=== PATIENT | female | born 1970 | race Caucasian/White ===

== ENCOUNTER 2016-12-18 15:50 | Inpatient (IN) | payer OTHER ==
[~2016-12-18] VITALS: Ht 165.1 cm; Wt 87.4 kg
[~2016-12-18 15:50] MED LIST: EXEN10PE SQ; METF10002 PO; SIMV40TA5 PO
[2016-12-18 16:21] VITALS: BP 135/84; PULSE 76; RESP 16; O2SAT 97
[2016-12-18] MEDS ORDERED: 0.9% Sodium Chloride 1,000 ML IV ONE ×2 (16:26→17:40)
[2016-12-18] MEDS ORDERED: Ketorolac 15 mg/mL Inj IVPUSH ONE (16:30)
--- NOTE | 2016-12-18 16:30 | ED.REPORT ---
HPI-Abd Pain F 40 and Over Date of Service Dec 18, 2016 ED Provider: Todd Keith DO The patient is a 45 year old female with history of diabetes mellitus, and pancreatitis thought to be due to medication use, who was sent to the emergency department from urgent care for abdominal pain that has gradually worsened over the last 5 days. Her pain is located to her upper abdomen. She has also noticed elevated sugars and chills. Her symptoms are worse after eating or drinking. She has only been able to tolerate fluids today but still feels she is not drinking enough. She is unable to tolerate solids due to pain. She believes her symptoms are similar to when she had pancreatitis. She denies nausea, vomiting, diarrhea, fever, dysuria, hematuria, urgency/frequency changes, cough, shortness of breath or chest pain. She has no known drug allergies. Nursing Notes Stated Complaint: ABDOMINAL PAIN Chief Complaint: Female Abdominal Pain Nursing Notes Reviewed: Yes Allergies: Coded Allergies: TAPE (Verified Allergy, Severe, severe rash, 12/18/16) latex (Verified Allergy, Severe, severe rash, 12/18/16) exenatide (Verified Adverse Reaction, Severe, pancreatitis, 12/18/16) simvastatin (Verified Adverse Reaction, Severe, pancreatitis, 12/18/16) Scheduled Metformin (Glucophage) 1,000 Mg Tablet 1,000 MG PO BID General Time Seen by MD: 16:07 Chief Complaint Abdominal pain Hx Obtained From: Patient Arrived By: Walk-in Sudden in Onset?: Yes Onset Occurred: 5 days ago Symptom Duration: Since onset Progression since Onset: Constant, Gradually worsening Location: : Abdomen upper Quality: Painful Radiation: : Does not radiate Severity: Current: Moderate Severity: Maximum: Moderate Associated with: Reports: Chills Pertinent Negative: Pt denies other symptoms Recent Healthcare: No recent hospitalization, Recent doctor visit Similar Sx Previous: Yes Past Medical History Past Medical History Pancreatitis Reports: Asthma, Diabetes mellitus, Hyperlipidemia Past Surgical History L knee repair Reports: Appendectomy, Family History Noncontributory Smoking History Former Smoker Social History Alcohol Use: "Social" Drug Use: Denies drug use Other Social History: Local resident Ambulatory Status Independent Review of Systems +elevated sugars, decreased PO intake Constitutional: Reports: Chills, Denies: Fever Respiratory: Denies: Non-productive cough, Shortness of breath Cardiovascular: Denies: Chest pain GI: Reports: Abdominal pain, Anorexia, Denies: Diarrhea, Nausea, Vomiting Female: Denies: Dysuria, Hematuria, Urinary frequency, Urinary urgency, Urination decreased, Urination increased Complete sys rev & neg: except as marked. Physical Exam Vital Signs Vital Signs (First) Date Time Temp Pulse Resp B/P Pulse Ox O2 Delivery O2 Flow Rate FiO2 12/18/16 16:21 36.8 76 16 135/84 97 Room Air Initial VS: Reviewed Head / Eyes: Atraumatic, Normocephalic, PERRL ENT: Mucous membranes moist, Conjunctiva normal, No scleral icterus Neck: Supple, Non-tender, Full range of motion Lymphatic: No lymphadenopathy Extremities: Vascular intact, Neuro intact, No swelling, No tenderness Skin: Warm, Dry, No cyanosis Neurologic: Alert, Oriented, Nonfocal Psychiatric: Mood/affect normal, Behavior normal, Normal thought content General/Constitutional: Awake, Alert Respiratory / Chest: Atraumatic, Breath sounds NL, Breath sounds = bilat, No respiratory distress, No rales, No rhonchi, No wheezing, No stridor Cardiovascular: Heart rate NL, Regular rhythm, Heart sounds NL, No gallop, No murmurs, No rubs, Peripheral circulation NL Abdomen: Soft, No guarding, No rebound, BS normoactive, No distention, No hernia, No palpable mass, No pulsatile mass Tenderness/Guarding/Rebound: Positive: Tender LUQ... (Mild) Back: Inspection NL, Non-tender, No CVA tenderness Interpretation & Diagnostics Lab Results Interpretation Result Diagram: 12/18/16 1639 12/18/16 1639 Test 12/18/16 16:39 White Blood Count 9.6th/mm3 (3.8-10.1) Red Blood Count 4.70mil/mm3 (3.90-5.20) Hemoglobin 13.5g/dL (12.0-15.6) Hematocrit 38.5% (35.0-46.0) Mean Corpuscular Volume 81.9fL (81-100) Mean Corpuscular Hemoglobin 28.7pg (27.0-35.0) Mean Corpuscular Hemoglobin Concent 35.1% (32.0-37.0) Red Cell Distribution Width 12.3% (12.3-15.4) Platelet Count 310bil/L (150-400) Neutrophils (%) (Auto) 68.0% (40-74) Lymphocytes (%) (Auto) 23.9% (14-46) Monocytes (%) (Auto) 5.5% (4-12) Eosinophils (%) (Auto) 1.7% (0-5) Basophils (%) (Auto) 0.4% (0-3) Sodium Level 132mEq/L (134-144) Potassium Level 3.8mEq/L (3.5-5.2) Chloride Level 93mEq/L (97-108) Carbon Dioxide Level 24mmol/L (18-29) Blood Urea Nitrogen 8mg/dL (6-24) Creatinine 0.44mg/dL (0.57-1.00) Estimat Glomerular Filtration Rate 221mL/min (>59) Glucose Level 277mg/dL (60-99) Calcium Level 9.6mg/dL (8.5-10.1) Magnesium Level 1.9mg/dL (1.6-2.6) Total Bilirubin 0.3mg/dL (0.0-1.2) Aspartate Amino Transf (AST/SGOT) 11U/L (0-50) Alanine Aminotransferase (ALT/SGPT) 17U/L (0-32) Alkaline Phosphatase 86U/L (25-150) Total Protein 7.8g/dL (6.4-8.4) Albumin 4.3g/dL (3.4-5.0) Lipase 820U/L (13-60) Re-Eval/Medical Decision Med Decision/Clinical Course Acute pancreatitis will admit. Source of Hx: Old records Re-Evaluation/Progress : Time of Eval: 17:33 Re-Evaluation/Progress Note: Rechecked the patient. Discussed diagnosis and plan for admission. All questions were addressed. Consultation : Referral / Consult Name: Mikey Salazar MD Consulted With: Hospitalist Requested Call at: 17:34 Call Returned at: 18:02 Crane Mechanic: Will see patient, Agrees with eval, Agrees with plan, Accepts admit Counseled Regarding: Diagnosis, Lab results, Need for admission Discharge & Departure Primary Impression: Pancreatitis Chronicity: acute Pancreatitis type: unspecified pancreatitis type Qualified Code: K85.9 - Acute pancreatitis, unspecified Disposition: ADMITTED TO HOSPITAL Discharge Condition All VS Reviewed: Yes Condition: Stable Referrals: La Minor PA-C (PCP) Jim Attestation Portions of this note were transcribed by Talya Hull. I, Dr. Keith personally performed the history, physical exam and medical decision-making; I reviewed and confirmed the accuracy of the information in the transcribed note. Signed by: Jim Chiu, 12/18/2016 at 1803. copies to: La Minor PA-C, Timothy S DO Dec 18, 2016 16:29 Talya Hull Dec 18, 2016 16:37
[2016-12-18] MEDS: Ondansetron 2 mg/mL 2 mL Inj IVPUSH PRN ×3 (16:50→23:03)
[2016-12-18 16:51] LABS: BASOPHILS % (AUTO) 0.4 % (0-3); EOSINOPHILS % (AUTO) 1.7 % (0-5); MONOCYTES % (AUTO) 5.5 % (4-12); Mean Corpuscular Hemoglobin 28.7 pg (27.0-35.0); Mean Corpuscular Volume 81.9 fL (81-100); Platelet Count 310 bil/L (150-400)
[2016-12-18 17:11] LABS: Magnesium 1.9 mg/dL (1.6-2.6)
[2016-12-18] MEDS ORDERED: 0.9% Sodium Chloride 1,000 ML IV SCH (17:40)
[2016-12-18] MEDS ORDERED: METF1000 PO (18:01)
[2016-12-18 18:15] VITALS: BP 141/78; PULSE 62; RESP 16; O2SAT 100
[2016-12-18] MEDS ORDERED: Glucose 40% Oral Gel 15 Gm Tube PO PRN ×2 (19:25→20:00)
[2016-12-18] MEDS: 0.9% Sodium Chloride 1,000 ML IV SCH (19:27)
[2016-12-18 19:48] VITALS: BP 141/78; PULSE 62; RESP 16; O2SAT 100
[2016-12-18 19:56] VITALS: BP 131/79; PULSE 60; RESP 18; O2SAT 99
--- NOTE | 2016-12-18 20:10 | PCM.HPMED ---
Subjective Date of Service Dec 18, 2016 Primary Provider: Admitting Physician: Mikey Salazar MD Primary Care Physician: Nopmeggan Attending Physician: Mikey Salazar MD Chief Complaint: Abdominal pain, nausea, vomiting History of Present Illness: The patient is a 45 year old female with history of non insulin dependent diabetes mellitus type II, obesity, pancreatitis x 2 for unknown cause ( presumably due medication) . She was seen today and urgent care center due to ongoing abdominal pain and nausea for 4-5 days and was referred to the ER for further evaluation. Patient denied any vomiting or diarrhea. Denies any alcohol intake . She stated any oral intake worsen her abdominal pain including drinking water . She denies chest pain, shortness of breath, fever, chills. Anemia workup shows lipase 800, blood sugar 277. Review of Systems: Comprehensive review is negative for what is described above in HPI Allergies Coded Allergies: TAPE (Verified Allergy, Severe, severe rash, 12/18/16) latex (Verified Allergy, Severe, severe rash, 12/18/16) exenatide (Verified Adverse Reaction, Severe, pancreatitis, 12/18/16) simvastatin (Verified Adverse Reaction, Severe, pancreatitis, 12/18/16) Home Medications Metformin (Glucophage) 1,000 Mg Tablet 1,000 MG PO BID PMH Metformin (Glucophage) 1,000 Mg Tablet 1,000 MG PO BID Surgical History L knee repair Reports: Appendectomy, Family History Family history reviewed and is noncontributory to the present illness Social History Hx Alcohol Use: Yes (occassionally) Hx Substance Use: No Smoking Status: Never Smoker Living Arrangement: with Family Exam Vital Signs Vital Sign - Last Date Time Temp Pulse Resp B/P Pulse Ox O2 Delivery O2 Flow Rate FiO2 12/18/16 19:56 36.4 60 18 131/79 99 Room Air Exam General: Alert female comfortably in no distress. HEENT: Normocephalic,. Sclerae is anicteric, CHESTER Mouth: Moist oral mucosa, no thrush Neck: No cervical lymphadenopathy, trachea is midline Chest: Normal respiratory effort, no chest tenderness. Heart: S1-S2 regular with no murmur Lungs: Clear bilaterally, no wheezing. Abdomen: Soft, tender on palpation in the epigastric area. Bowel sounds normal Extremities : No edema, no cyanosis, no calf tenderness Neuro : Grossly non focal Skin: No rash, no ulcers Lab and Diagnostics Result Diagram: 12/18/16 1639 12/18/16 1639 Assessment & Plan 1. Acute Pancreatitis 2. Dehydration 3. IDDM type II NPO IV hydration NS @ 100 ml/hr Morphine sulfate for pain ' Hold metformin . Monitor blood sugar, start sliding scale insulin with coverage if needed Repeat lipase in AM . Possible liquid diet in am Abdominal CT scan. Consider GI consult Heparin for DVT prophylaxis Pain Evaluation: Adequate Pain Control VTE Prophylaxis: Sub-Q Heparin (Unfractionated) Resuscitation Status: CPR: Attempt Resuscitation Time spent 55 minutes Mikey Salazar MD Dec 18, 2016 20:10
[2016-12-18] MEDS: Heparin 5,000 Unit/mL Inj SUBQ SCH (20:24)
--- NOTE | 2016-12-18 20:54 | NUR ---
ADMIT: 1950 Pt. arrived from the ED to [facility] via stretcher, awake, alert and oriented x3, able to ambulate from stretcher on the hallway to her bed in room 1019, steady gait. Holding her abdomen when ambulating, rated her pain at 4/10 on LUQ. States she was given medication in the ED. LAC IV with NS transferred to IV pump at 100 ml/hr. NPO, KS=425, VS done upon arrival. SCDs placed on. Dr. Salazar came in to see Pt. shortly after arrival. On going care.
--- NOTE | 2016-12-19 00:31 | NUR ---
CT WITH CONTRAST: Orders for CT of abdomen with contrast. Pt. starting taking the contrast at 2350 and finished it at midnight tonight 12/19/16 tolerated well, given 4 mg of Zofran prior to taking contrast. Will go to CT procedure at 0050 tonight. Denies n/v. Given 2 mg of IV MS prior to that for abdominal pain/pancreatitis. Voiding nanette urine. A & O, VSS, on going care.
[2016-12-19 00:33] VITALS: BP 121/78; PULSE 63; RESP 16; O2SAT 97
--- NOTE | 2016-12-19 01:40 | NUR ---
[address]: Left for abdominal CT with contrast went via w/c. Awake and talking.
--- NOTE | 2016-12-19 01:41 | NUR ---
RETURNED FROM CT: [address] done with contrast. Tolerated well. Up to the bathroom voiding upon return from CT. On going care.
[2016-12-19 05:08] VITALS: BP 121/82; PULSE 66; RESP 18; O2SAT 96
[2016-12-19] MEDS: Ondansetron 2 mg/mL 2 mL Inj IVPUSH PRN ×3 (05:11→20:15)
[2016-12-19] MEDS: 0.9% Sodium Chloride 1,000 ML IV SCH ×2 (06:42→16:57)
[2016-12-19 07:32] LABS: BASOPHILS % (AUTO) 0.3 % (0-3); EOSINOPHILS % (AUTO) 1.5 % (0-5); MONOCYTES % (AUTO) 7.6 % (4-12); Mean Corpuscular Hemoglobin 28.7 pg (27.0-35.0); Mean Corpuscular Volume 84.1 fL (81-100); NEUTROPHILS % (AUTO) 64.6 % (40-74); Platelet Count 258 bil/L (150-400)
[2016-12-19 08:12] VITALS: BP 126/84; PULSE 84; RESP 14; O2SAT 96
[2016-12-19] MEDS: Heparin 5,000 Unit/mL Inj SUBQ SCH ×2 (08:22→19:53)
--- NOTE | 2016-12-19 08:58 | NUR ---
NUTRITION ASSESSMENT: ASSESS: 45YO F admit with pancreatitis, to abdominal CT this a.m. Remains NPO PMHX: Diabetes, DIET: NPO LABS:A1c pending, Glu 241, Alb 3.9, Lipase 195 MEDS:Metformin 1000mg GI: Pt denies diarrhea. No BM recorded WEIGHT: 87.4kg BMI: 32.1 EST.NEEDS: OBESITY/PANCREATITIS (22-25kcal/kg;1.5-1.8g/kg IBW) Kcal: 3583-9128 Pro: 85-100g NUTRITION DIAGNOSIS: (1) Inadequate oral intake related to pancreatitis/abdominal pain as evidenced by NPO status. INTERVENTION: (1) No intervention at this time. MONITOR/EVALUATE: Monitor for diet advancement, GI status, labs. F/U per moderate risk.
[2016-12-19] MEDS ORDERED: HYDROmorphone 2 mg/mL Inj IVPUSH PRN ×2 (10:20→14:25)
--- NOTE | 2016-12-19 10:55 | DRSVH ---
PROCEDURE: CT ABDOMEN WITH CONTRAST ([id number]) INDICATIONS: Acute pancreatitis TECHNIQUE: After the administration of oral and intravenous contrast, 5 mm thick sections acquired from the diap hragms to the iliac crests. 5 mm thick coronal and sagittal reformats were acquired. For radiation dose reduction, the following was used: automated exposure control, adjustment of mA and/or kV accor ding to patient size. COMPARISON: None. FINDINGS: Image quality: Excellent. Lung bases: Lung bases are clear. Heart size is normal. Solid organs: Liver and spleen are normal in size and enhancement. Diffuse fatty infiltration the li gerber is noted. Gallbladder is within normal limits. Biliary system is non dilated. Pancreas enhances normally. Mild stranding noted adjacent to the head and uncinate process of the pancreas compatible with pancreatitis. No pancreatic necrosis identified. No pancreatic pseudocyst identified. No adrenal nodules. Kidneys are normal in size, without hydronephrosis. Peritoneum and bowel: Contrast enhanced bowel loops appear normal in caliber. No free fluid or air. Nodes and vessels: No retroperitoneal or mesenteric adenopathy by size criteria. Aorta and inferior vena cava are normal in size. Bones: No suspicious bony lesions. No vertebral body compression fractures. Miscellaneous: No ventral hernias. IMPRESSION: 1. Findings compatible with acute pancreatitis. No pancreatic necrosis or pancreatic pseudocyst ident ified in the current study. 2. Hepatic steatosis. Dictated by: Zabrina Clark MD, PhD on 12/19/2016 at 10:43 Approved by: Zabrina Clark MD, PhD on 12/19/2016 at 10:54
--- NOTE | 2016-12-19 11:42 | PCM.PNMED ---
Subjective Date of Service Dec 19, 2016 Subjective Patient says she does not drink, smoke or eat poorly. This is her second episode in [address] abd/pelvic last night did not reveal gallbladder problems. Pain is 3 /10. Nause improved. Patient was on a statin in the past which had been caused her pancreatitis along with Bydureon. She states in general she has not had much luck with tolerating medications. Exam Vital Signs Vital Sign - Last Date Time Temp Pulse Resp B/P Pulse Ox O2 Delivery O2 Flow Rate FiO2 12/19/16 08:12 36.8 84 14 126/84 96 Room Air Intake and Output 12/18/16 12/18/16 12/19/16 Cumulative From/Thru 15:00 23:00 07:00 12/18/16 16:21 - 12/19/16 05:40 Intake Total 3000 ml 1077 ml 4077 ml Output Total 1150 ml 1150 ml Balance 3000 ml -73 ml 2927 ml Intake Oral 200 ml 200 ml IV Total 3000 ml 877 ml 3877 ml Output Urine Total 1150 ml 1150 ml # Bowel Movements 0 0 IVs and Medications IV Fluids 100 mL/h and N SS Medications Reviewed: Medications were reviewed in detail Lab and Diagnostics Result Diagram: 12/19/16 0606 12/19/16 0656 Assessment & Plan 1. Acute Pancreatitis : NPO IV hydration NS @ 100 ml/hr Morphine sulfate for pain 2-4 mg Q4H PRN' Hold metformin . Monitor blood sugar, start sliding scale insulin with coverage if needed Diet is advanced to clears Heparin for DVT prophylaxis AM lipase which improved. Amylase is low indicating new onset. Acute on chronic pancreatitis differential includes hyperlipidemia versus autoimmune versus hypoparathyroidism: Lab work is ordered. 2. Dehydration : Continue IV fluids 3. IDDM type II : Low SSI VTE Prophylaxis: Sub-Q Heparin (Unfractionated) VTE Mechanical Devices: Intermittant Pneumatic CD Resuscitation Status: CPR: Attempt Resuscitation Deann Finn DO Dec 19, 2016 11:42
[2016-12-19] MEDS: Insulin Human REGular 300 Unit/3 mL Inj SUBQ SCH ×3 (11:43→21:51)
--- NOTE | 2016-12-19 13:12 | NUR ---
Social Work- Brief Note Data: EMR reviewed. Pt is a 45 year old female admitted 12/18/16 for pancreatitis per H&P. Pt's insurance is [employer]. Pt is looking for PCP at [facility]. SW followed up with pt regarding discharge plan, SW role explained. Pt resides in [place] with her where she remains independent with her ADLs. Pt has no DME, no HH history, no SNF history. Pt continues to drive. SW spoke to pt regarding DPOA. Pt is aware of DPOA paperwork and states she will fill it out at a later time. Declined SW's offer of paperwork. Pt to discharge home via POV or family to transport via POV. No anticipated discharge needs. SW will continue to follow. Assessment: [place]. Plan: Pt to discharge home via POV or family to transport via POV. No anticipated discharge needs. SW will continue to follow. Siobhan Gibbons MSW
[2016-12-19 13:13] VITALS: BP 125/79; PULSE 78; RESP 16; O2SAT 96
[2016-12-19] MEDS ORDERED: HYDROmorphone 1 mg/mL Inj IVPUSH PRN (14:30)
[2016-12-19 15:25] VITALS: BP 132/84; PULSE 90; RESP 22; O2SAT 97
--- NOTE | 2016-12-19 17:04 | NUR ---
Pain/Dilaudid Patient c/o7/10 abd pain r/t pancreatitis. Patient had 2-4mg IV Dilaudid PRN ordered for pain. 2 mg IV push given per order. Shortly after giving patient began screaming and crying, saying " I don't feel right" "Too much too much". chute greaser and MD notified. VSS. Patient calmed down after about 30 minutes. MD ordered Narcan to be given, patient refused narcan. MD aware of refusal. Resting in bed, eyes closed. Frequent checks initiated to monitor for adverse reactions.
[2016-12-19 19:52] VITALS: BP 115/66; PULSE 71; RESP 18; O2SAT 97
[2016-12-20] MEDS: Ondansetron 2 mg/mL 2 mL Inj IVPUSH PRN ×2 (02:27→10:46)
[2016-12-20] MEDS: 0.9% Sodium Chloride 1,000 ML IV SCH ×2 (03:27→12:57)
[2016-12-20 05:17] VITALS: BP 110/60; PULSE 71; RESP 20; O2SAT 94
--- NOTE | 2016-12-20 06:34 | NUR ---
Pain/Nausea 2mg IV morphine seems to be effective for pain. Pt. has experienced nausea during shift. 4 mg IV Zofran seems to be effective for nausea. Will continue to monitor.
[2016-12-20 07:21] LABS: BASOPHILS % (AUTO) 0.3 % (0-3); EOSINOPHILS % (AUTO) 1.1 % (0-5); MONOCYTES % (AUTO) 7.1 % (4-12); Mean Corpuscular Hemoglobin 28.2 pg (27.0-35.0); NEUTROPHILS % (AUTO) 72.6 % (40-74); Platelet Count 283 bil/L (150-400)
[2016-12-20] MEDS: Heparin 5,000 Unit/mL Inj SUBQ SCH (08:26)
[2016-12-20] MEDS: Insulin Human REGular 300 Unit/3 mL Inj SUBQ SCH ×3 (08:27→17:54)
--- NOTE | 2016-12-20 11:30 | NUR ---
Social Work- Readiness for Discharge Data: EMR reviewed. Pt is on day 2 of hospitalization for pancreatitis per H&P. Pt is not medically stable, anticipate 1-2 more days. Per RN notes, pt is clear PO and ambulating in room independently. Pt to discharge home via POV or family to transport via POV. No anticipated discharge needs. SW will continue to follow. Assessment: [place]. Plan: Pt to discharge home via POV or family to transport via POV. No anticipated discharge needs. SW will continue to follow. Siobhan Gibbons MSW
[2016-12-20 12:40] VITALS: BP 135/76; PULSE 73; O2SAT 96
[2016-12-20 16:13] VITALS: BP 146/82; PULSE 87; RESP 20; O2SAT 96
--- NOTE | 2016-12-20 17:55 | PCM.DIMED ---
Discharge Instructions Date of Service Dec 20, 2016 Dates of Hospitalization Dec 18, 2016 at 18:16 Discharge Diagnosis Discharge Diagnosis acute on chronic pancreatitis, T2DM Medication Instructions Restart your metformin tomorrow AM. Start glipizide as prescribed Diet Diabetic Activity No restrictions Call your provider Fever or Chills, Shortness of breath, Bleeding, Chest pain, Vomitting, Excessive diarrhea, Weakness (unilateral) Patient Instructions Please advance diet slowly, follow low fat diet. Stay well hydrated. Follow-up plan Follow up with PCP at residency clinic in one week Deann Finn DO Dec 20, 2016 17:55
[2016-12-20] MEDS ORDERED: GLPZ5T PO (17:57)
--- NOTE | 2016-12-20 20:19 | PCM.PNMED ---
Subjective Date of Service Dec 20, 2016 Subjective Patient is seen and examined. She states her pain has much improved. She would like to go home today but does not want narcotics prescribed. She discussed currently not having a PCP. We advised her to go to the residency clinic for the time being. She has not taken Lantus in several weeks. We offered her MRCP to investigate the cause of pancreatitis but patient declined stating that she is to call claustrophobic for that and she cannot take anxiolytics. She denies nausea, she says she tolerated liquid low-fat diet okay no other concerns were expressed. Exam Vital Signs Vital Sign - Last Date Time Temp Pulse Resp B/P Pulse Ox O2 Delivery O2 Flow Rate FiO2 12/20/16 16:13 37.0 87 20 146/82 96 Room Air Intake and Output 12/19/16 12/19/16 12/20/16 Cumulative From/Thru 15:00 23:00 07:00 12/18/16 16:21 - 12/20/16 06:47 Intake Total 1168 ml 1337 ml 6582 ml Output Total 1000 ml 1270 ml 3420 ml Balance 168 ml 67 ml 3162 ml Intake Oral 200 ml 100 ml 500 ml IV Total 968 ml 1237 ml 6082 ml Output Urine Total 1000 ml 1270 ml 3420 ml # Voids 2 3 5 # Bowel Movements 0 0 Exam Gen.: No acute distress HEENT: Normocephalic, atraumatic Heart: regular rate and rhythm, no S3-S4 sounds Lungs: clear to auscultation bilaterally no crackles or wheezes Abdomen: nontender nondistended normal bowel sounds Extremities: without edema Psych: negative for anxiety Neuro: No focal deficits IVs and Medications IV Fluids NSS 100 mL per hour Lab and Diagnostics Result Diagram: 12/20/16 0701 12/20/16 0701 X-Rays, CTs and MRIs [facility] Diagnostic [place] [address] Patient Name: RACHELL JAMA MR#: [id number] [place] [facility] [place] Phys: Mikey Salazar MD Date of Service: 12/19/16 0000 PROCEDURE: CT ABDOMEN WITH CONTRAST ([id number]) INDICATIONS: Acute pancreatitis TECHNIQUE: After the administration of oral and intravenous contrast, 5 mm thick sections acquired from the diaphragms to the iliac crests. 5 mm thick coronal and sagittal reformats were acquired. For radiation dose reduction, the following was used: automated exposure control, adjustment of mA and/or kV according to patient size. COMPARISON: None. FINDINGS: Image quality: Excellent. Lung bases: Lung bases are clear. Heart size is normal. Solid organs: Liver and spleen are normal in size and enhancement. Diffuse fatty infiltration the liver is noted. Gallbladder is within normal limits. Biliary system is non dilated. Pancreas enhances normally. Mild stranding noted adjacent to the head and uncinate process of the pancreas compatible with pancreatitis. No pancreatic necrosis identified. No pancreatic pseudocyst identified. No adrenal nodules. Kidneys are normal in size, without hydronephrosis. Peritoneum and bowel: Contrast enhanced bowel loops appear normal in caliber. No free fluid or air. Nodes and vessels: No retroperitoneal or mesenteric adenopathy by size criteria. Aorta and inferior vena cava are normal in size. Bones: No suspicious bony lesions. No vertebral body compression fractures. Miscellaneous: No ventral hernias. IMPRESSION: 1. Findings compatible with acute pancreatitis. No pancreatic necrosis or pancreatic pseudocyst identified in the current study. 2. Hepatic steatosis. Dictated by: Zabrina Clark MD, PhD on 12/19/2016 at 10:43 Approved by: Zabrina Clark MD, PhD on 12/19/2016 at 10:54 Assessment & Plan 1. Acute Pancreatitis : NPO IV hydration NS @ 100 ml/hr Morphine sulfate for pain 2-4 mg Q4H PRN' Hold metformin . Monitor blood sugar, start sliding scale insulin with coverage if needed Diet is advanced to clears Heparin for DVT prophylaxis AM lipase which improved. Amylase is low indicating new onset. Acute on chronic pancreatitis differential includes hyperlipidemia versus autoimmune versus hypoparathyroidism: Lab work is ordered.: ERIN is pending lipid panel shows concerned that hyperlipidemia however patient says she did not tolerate statins due to pancreatitis and other medications that were tried by PCP. Parathyroid hormone levels normal we discussed MRCP with the patient. We discussed possibly giving her some Ativan due to her claustrophobia but she declined. She feels she will not need it. Date is advanced and she is tolerating it well. Denies nausea increased pain. Patient improved sooner than expected and wanting to go home. 2. Dehydration : Continue IV fluids 3. IDDM type II : Low SSI. Her A1c was 10.9 during this admission however she only needed 5 units of regular insulin. She was not even on metformin because it was held due to the CT scan. Thus, glipizide 5 mg daily was added to her regimen for home-going. She is asked to follow-up with PCP at the residency clinic closely VTE Prophylaxis: Sub-Q Heparin (Unfractionated) VTE Mechanical Devices: Intermittant Pneumatic CD Resuscitation Status: CPR: Attempt Resuscitation Deann Finn DO Dec 20, 2016 20:19
--- NOTE | 2016-12-20 20:23 | PCM.DC.MED ---
Discharge Summary Date of Service Dec 20, 2016 Dates of Hospitalization Date of Hospital Admission Dec 18, 2016 at 18:16 Date of Discharge: Dec 20, 2016 Providers: Admitting Physician: Mikey Salazar MD Primary Care Physician: Nopcp Attending Physician: Mikey Salazar MD Diagnosis at Time of Discharge Diagnosis at Time of Discharge acute on chronic pancreatitis, T2DM, nausea, abdominal pain Procedures XRay, CTs & MRIs [facility] Diagnostic Imaging Department [place] [address] Patient Name: RACHELL JAMA MR#: [id number] Location: [facility] Ordering Phys: Mikey Salazar MD Date of Service: 12/19/16 0000 PROCEDURE: CT ABDOMEN WITH CONTRAST ([id number]) INDICATIONS: Acute pancreatitis TECHNIQUE: After the administration of oral and intravenous contrast, 5 mm thick sections acquired from the diaphragms to the iliac crests. 5 mm thick coronal and sagittal reformats were acquired. For radiation dose reduction, the following was used: automated exposure control, adjustment of mA and/or kV according to patient size. COMPARISON: None. FINDINGS: Image quality: Excellent. Lung bases: Lung bases are clear. Heart size is normal. Solid organs: Liver and spleen are normal in size and enhancement. Diffuse fatty infiltration the liver is noted. Gallbladder is within normal limits. Biliary system is non dilated. Pancreas enhances normally. Mild stranding noted adjacent to the head and uncinate process of the pancreas compatible with pancreatitis. No pancreatic necrosis identified. No pancreatic pseudocyst identified. No adrenal nodules. Kidneys are normal in size, without hydronephrosis. Peritoneum and bowel: Contrast enhanced bowel loops appear normal in caliber. No free fluid or air. Nodes and vessels: No retroperitoneal or mesenteric adenopathy by size criteria. Aorta and inferior vena cava are normal in size. Bones: No suspicious bony lesions. No vertebral body compression fractures. Miscellaneous: No ventral hernias. IMPRESSION: 1. Findings compatible with acute pancreatitis. No pancreatic necrosis or pancreatic pseudocyst identified in the current study. 2. Hepatic steatosis. Dictated by: Zbarina Clark MD, PhD on 12/19/2016 at 10:43 Approved by: Zabrina Clark MD, PhD on 12/19/2016 at 10:54 Brief History The patient is a 45 year old female with history of insulin dependent diabetes mellitus type II, obesity, pancreatitis x 2 for unknown cause ( presumably due medication) . She was seen today and urgent care center due to ongoing abdominal pain and nausea for 4-5 days and was referred to the ER for further evaluation. Patient denied any vomiting or diarrhea. Denies any alcohol intake . She stated any oral intake worsen her abdominal pain including drinking water . She denies chest pain, shortness of breath, fever, chills. Anemia workup shows lipase 800, blood sugar 277. Hospital Course 1. Acute recurrent Pancreatitis : Patient was put on nothing by mouth diet, IV fluids, pain control and nausea control. Lipase has dramatically improved and her diet was advanced from clear liquids to full liquids low-fat. Her ERIN levels are pending at the time of her discharge. Lipid panel shows concerned that hyperlipidemia however patient says she did not tolerate statins due to pancreatitis and other medications that were tried by PCP. Parathyroid hormone levels normal. ERIN is ordered and is pending at this time. We discussed MRCP with the patient but she did not want the scan. We discussed possibly giving her some Ativan prior to MRCP due to her claustrophobia but she declined. She feels she will do fine and will not need it. Diet is advanced and she is tolerating it well. Denies nausea increased pain. Patient improved sooner than expected and patient is wanting to go home. 2. Dehydration : She was given IV hydration 3. IDDM type II : Low SSI is given, metformin is held. Her A1c was 10.9 during this admission however she only needed 5 units of regular insulin in the last 3 shifts. She was not even on metformin because it was held due to the CT scan. Thus, glipizide 5 mg daily was added to her metformin regimen for home-going. She is asked to follow-up with PCP at the [facility] closely. She os agreeable o this plan Exam Vital Signs (Last) Date Time Temp Pulse Resp B/P Pulse Ox O2 Delivery O2 Flow Rate FiO2 12/20/16 16:13 37.0 87 20 146/82 96 Room Air Exam General: NAD HEENT: normocephalic, atraumatic Heart: RRR, no s3/s4 Lungs: CTA, no crackles or wheezes Abd: Improved epigastric pain, non-distended Psych: Negative for anxiety Neuro: No focal deficits Test 12/18/16 16:39 12/18/16 19:01 12/19/16 06:56 12/19/16 14:20 Hemoglobin A1c 10.9% (4.8-5.6) Magnesium Level 1.9mg/dL (1.6-2.6) HCG Beta Subunit 2.00mIU/mL Hold Urine Received (Received) Amylase Level 20U/L (28-100) Triglycerides Level 221mg/dL (0-149) Cholesterol Level 289mg/dL (100-199) LDL Cholesterol, Calculated 203.800mg/dL (0-99) VLDL Cholesterol 44.200mg/dL HDL Cholesterol 41mg/dL (>39) Cholesterol/HDL Ratio 7.05 (0.0-4.4) Parathyroid Hormone (Intact) 41pg/mL (15-65) Anti-Nuclear Antibody Screen Negative (Negative) Test 12/20/16 07:01 White Blood Count 11.3th/mm3 (3.8-10.1) Red Blood Count 4.29mil/mm3 (3.90-5.20) Hemoglobin 12.1g/dL (12.0-15.6) Hematocrit 35.6% (35.0-46.0) Mean Corpuscular Volume 83.0fL (81-100) Mean Corpuscular Hemoglobin 28.2pg (27.0-35.0) Mean Corpuscular Hemoglobin Concent 34.0% (32.0-37.0) Red Cell Distribution Width 12.2% (12.3-15.4) Platelet Count 283bil/L (150-400) Neutrophils (%) (Auto) 72.6% (40-74) Lymphocytes (%) (Auto) 18.6% (14-46) Monocytes (%) (Auto) 7.1% (4-12) Eosinophils (%) (Auto) 1.1% (0-5) Basophils (%) (Auto) 0.3% (0-3) Sodium Level 135mEq/L (134-144) Potassium Level 4.0mEq/L (3.5-5.2) Chloride Level 99mEq/L (97-108) Carbon Dioxide Level 18mmol/L (18-29) Blood Urea Nitrogen 5mg/dL (6-24) Creatinine 0.36mg/dL (0.57-1.00) Estimat Glomerular Filtration Rate 278mL/min (>59) Glucose Level 204mg/dL (60-99) Calcium Level 9.3mg/dL (8.5-10.1) Total Bilirubin 0.4mg/dL (0.0-1.2) Aspartate Amino Transf (AST/SGOT) 13U/L (0-50) Alanine Aminotransferase (ALT/SGPT) 12U/L (0-32) Alkaline Phosphatase 82U/L (25-150) Total Protein 6.9g/dL (6.4-8.4) Albumin 4.0g/dL (3.4-5.0) Lipase 49U/L (13-60) Discharge Medications Discharge Medications Glipizide (Glipizide) 5 Mg Tablet 5 MG PO DAILY Prescribed by: DEANN BAE DO Metformin (Glucophage) 1,000 Mg Tablet 1,000 MG PO BID (Reported) Additional med instructions Restart your metformin tomorrow AM. Start glipizide as prescribed Followup Plan Follow-up plan Follow up with PCP at residency clinic in one week Discharge Diet: Diabetic Discharge Activity: No restrictions Patient Instructions Please advance diet slowly, follow low fat diet. Stay well hydrated. Deann Bae DO Dec 20, 2016 20:23
== END 2016-12-20 19:00 | disposition home or self-care (01) | DRG 440 ==
LOC: SED 15:50 → OSC 18:16
PROVIDERS: ADMIT Internal Medicine; ATTEND Internal Medicine
DX: K85.90 Acute pancreatitis without necrosis or infection, unspecified (principal); Z79.84 Long term (current) use of oral hypoglycemic drugs; Z87.891 Personal history of nicotine dependence; E86.0 Dehydration; E11.9 Type 2 diabetes mellitus without complications; K86.1 Other chronic pancreatitis